=== PATIENT | female | born 1990 | race Two or more races ===

== ENCOUNTER 2025-02-10 11:01 | Outpatient (AMB) | payer MEDICAID, SELFPAY ==
--- NOTE | 2025-02-10 11:10 | OBCLNT_ITS ---
Allergies/Home Meds Allergies & Medications Allergies No Known Allergies Allergy (Verified 02/10/25 11:10) Medication Reconciliation Unobtainable 02/10/25 [History Confirmed 02/10/25] Intake Visit Data Collection New Patient or Established: New Patient (never been to [facility]) Reason for Visit:: - Routine care at 27 weeks and 3 days gestation Seen by Clinical Staff ONLY (RN/MA): Yes Language: MARIBEL ALEJANDRO / PRESCHOOL ADVISER Plastic Straightening Roll Operator Required: Yes Plastic Straightening Roll Operator's name/title: MARIBEL ALEJANDRO / PRESCHOOL ADVISER Do You Feel Safe at Home: Yes Authorities Contacted: N/A PCP or OBGYN visit in last 3 months: Yes Date of Last PCP or OBGYN visit: 01/06/25 Hx Now: Yes Are you currently on any form of Control: No Last menstrual period: 05/10/24 Pain Present Currently: Yes Pain Scale Used: Weeks-Marley/Numerical Pain scale:: 0 Smoking Status Smoking Status: Never smoker Questionnaires Covid-19 Vaccine Questionnaire Has patient been vacinated for Covid-19 Have you been vacinated for Covid-19: No PHQ-9 PHQ-2 Over the last 2 weeks, how often have you been bothered by any of the following problems? 1. Little interest or pleasure in doing things: not at all PHQ-9 3. Trouble falling or staying asleep, or sleeping too much: Not at all 4. Feeling tired or having little energy: Not at all 5. Poor appetite or overeating: Not at all 6. Feeling bad about yourself - or that you are a failure or have let yourself or your family down: Not at all 7. Trouble concentrating on things, such as reading the newspaper or watching television: Not at all 8. Moving or speaking so slowly that other people could have noticed? - Or the opposite - being so fidgety or restless that you have been moving around a lot more than usual: not at all 9. Thoughts that you would be better off or of hurting yourself in some way: Not at all If you checked off any problems, how difficult have these problems made it for you to do your work, take care of things at home, or get along with other people?: not difficult at all Source: Developed by Drs. Vinicio Law, Trish Zhang, Jhonny Cohen and colleagues, with an educational rabia from [employer]. Depression screen completed yes Social History Living Situation History Marital Status: Lives With: Family Housing: House Tobacco History Smoking Status: Never smoker Second Hand Smoke Exposure: No Alcohol History Alcohol Intake: Never Domestic Abuse History Do You Feel Safe at Home: Yes Past Medical History Past Medical History Have you ever been diagnosed with any of the following: History of Present Illness HPI Narrative - Snow is a 32-year-old presenting for routine care at 27 weeks and 3 days gestation. - Patient was transferred from a different facility and initially seen at 29 weeks gestation. - She has a history of all vaginal deliveries with pre-eclampsia in her 2nd . - At the last visit: - Comprehensive labs were ordered - MFM referral was created for level 2 ultrasound - Patient was started on low-dose aspirin due to her previous history - Current visit: - Patient reports feeling good - heartbeat was checked and found to be normal at 152-153 bpm - No specific complaints or symptoms reported during this visit No contractions/ LOF/VB, reports good FM No VILLASEÑOR/VC/RUQ/Epig pain OB Initial Visit OB Flowsheet OB Flowsheet Initial Weight: Not Recorded Date -?-?-?-?-?-?-?-?-?-?-?-?- EGA Weight Edema CTX Effacement BP Fundal ht Pres Dilation Effacement Station Visit Note Alb Glu FHR Mov 02/10/25 -?-?-?-?-?-?-?-?-?-?-?-?- 39w 3d Shanon Green, at 3 9w3d (JIAN 02/14/2025 by LMP 05/10/2024), presents for routine full-term visit. She reports no contractions and denies any -related complications, including diabetes or hypertension. movement remains active. She has a history of four prior vaginal deliveries without or surgical history. No current complaints. heart rate is 135?136 bpm. Labs show mild anemia (Hgb 10.2), O+ blood type, normal 1-hour glucose (87), A1c 5.0, and negative infectious disease and CF screens. Plan: Follow up with lumber estimator Melody after JIAN () Perform cervical exam at next visit Monitor for spontaneous labor; consider induction if no labor by due date Review and consolidate records from Dr. Winn into chart Continue education and monitor for labor sign Menstrual History Menstrual reliability: definite Flow: normal Menstrual regularity: regular Monthly: Yes Age at menarche: 14 On control pills at conception: Yes OB History : 4 Para: 3 Hx # Pregnancies: 0 Hx Total # of Abortions (Spontaneous & Elective): 0 # of Living Children: 3 Delivery History 1st : Child's name: FANY date: 08/19/09 sex: female Delivery type: vaginal weight (lbs): 2721.554 g History of depression before or after : No 2nd : Child's name: ESTELITA LACY date: 08/12/12 sex: female Delivery type: vaginal weight (lbs): 2721.554 g History of depression before or after : No 3rd : Child's name: MEGHAN date: 04/09/17 sex: female Delivery type: vaginal weight (lbs): 2721.554 g History of depression before or after : No Infection History & Risk Evaluation History of STDs: none HIV risk evaluation: low risk Hepatitis B risk evaluation: low risk Varicella/chicken pox status: immunized Genetic Screening & History Genetic Screening/Teratology Counseling - Includes patient, baby's father, or anyone in either family with: 1. Patient's age 35 years or older as of estimated date of delivery: No 2. Thalassemia (Montserratian, Swedish, Mediterranean, or Background); MCV less than 80: No 3. Neural Tube Defect (Meningomyelocele, Spina Bifida, or Anencephaly): No 4. Congenital Heart Defect: No 5. Down Syndrome: No 6. Lucas-Sachs (Ashkenazi Voodoo, Cajun, Slovak Anguillan): No 7. Julio Disease (Ashkenazi Voodoo): No 8. Familial Dysautonomia (Ashkenazi Voodoo): No 9. Sickle Cell Disease or Trait (): No 10. Hemophilia or other blood disorders: No 11. Muscular Dystrophy: No 12. Cystic Fibrosis: No 13. [place]'s Chorea: No 14. Mental Retardation/Autism: No 15. Other inherited genetic or chromosomal disorder: No 16. Maternal Metabolic Disorder (EG,TYPE 1 Diabetes, PKU): No 17. Patient or baby's father had a child with defects not listed above: No 18. Recurrent loss or a stillbirth: No 19. Medications (including supplements, vitamins, herbs or otc drugs)/illicit/recreational drugs/alcohol since last menstrual period: No 20. Any other: No Infection History 1. Live with someone with TB or exposed to TB: No 2. Rash or viral illness since last menstrual period: No 3. Hepatitis B,C: No Other (see comments) Source: [employer] Exam General General Appearance: alert, in no apparent distress and healthy appearing Head Head exam: atraumatic Neck Neck exam: Present normal inspection and trachea midline Chest Chest inspection: Present normal inspection and symmetric chest wall rise External exam: Present normal external exam; Absent tenderness Neuro Neurological exam: Present oriented X3 Psych Psychiatric exam: Present normal affect and normal mood Assessment & Plan Diagnosis / Problem List (1) Supervision of high risk , unspecified, third trimester: Status: Acute Plan Problem List - - History of pre-eclampsia - Anemia - Asymptomatic bacteriuria Assessment - Intrauterine at 27 weeks and 3 days gestation - 6, para 4013 - History of pre-eclampsia in 2nd - Anemia (hemoglobin 10.8) - Asymptomatic bacteriuria (Morquinella morquinae <100,000 CFU) - Male fetus confirmed by maternity genome testing - Low-dose aspirin therapy initiated Plan - Follow up in 2 weeks - Await call from [facility] specialist for level 2 ultrasound appointment (expected within 1-2 weeks) - Continue low-dose aspirin regimen Educated the patient on labor signs, including regular contractions, lower back pain, and changes in vaginal discharge. Advised avoiding heavy lifting and getting adequate rest. Instructed to contact the office immediately if any signs occur. Discussed the importance of a balanced diet rich in folic acid, iron, and calcium, and provided a list of recommended and to-avoid foods. Emphasized avoiding high-sugar foods to reduce gestational diabetes risk. Encouraged hydration and frequent, small meals for energy.. Office Procedures OB Clinic LOC & Office Proc's Nursing/Assessment Patient Status: Initial/New Patient OB Clinic Nursing Assessment: BP Monitoring, Medication Reconciliation, Update PMH in EMR and Vital Signs OB Clinic Coordination of Care: Consent,records obtained, informed consent, Education Simp Pt/Fam, Lab and Imaging orders, Results/Orders obtained and Staff clarify orders Special Needs: Heart tones New Patient Charge New Patient Point Assignment: [id number] New Patient Point Charge: SAAS ARCHITECT Level 4 (2310-1248)
== END 2025-02-10 13:08 | disposition home or self-care (01) ==
PROVIDERS: Supervising Provider Obstetrics & Gynecology; Visit Provider Obstetrics & Gynecology
DX: O09.293 Supervision of pregnancy with other poor reproductive or obstetric history, third trimester (principal); Z3A.39 39 weeks gestation of pregnancy; O09.893 Supervision of other high risk pregnancies, third trimester; Z87.59 Personal history of other complications of pregnancy, childbirth and the puerperium; O99.013 Anemia complicating pregnancy, third trimester; R82.71 Bacteriuria
CPT/HCPCS: 99204; G0463

== ENCOUNTER 2025-02-16 08:45 | Outpatient (AMB) | payer MEDICAID, SELFPAY ==
--- NOTE | 2025-02-16 08:49 | AMB.OBVISIT ---
Vital Signs 02/16/25 08:55 Weight 78.075 kg Weight Measurement Method Standing Scale BP 108/69 Blood Pressure Source Automatic Cuff Blood Pressure Location Left Upper Arm Position Sitting Respiration 18 Pulse 61 Pulse Source Monitor Temp 97.2 F Temp Source Oral Pulse Oximetry (%) 99 Oxygen Delivery Method Room Air Allergies/Home Meds Allergies & Medications Allergies No Known Allergies Allergy (Verified 02/16/25 08:56) Medication Reconciliation Unobtainable 02/10/25 [History Confirmed 02/16/25] Intake Visit Data Collection New Patient or Established: Established Patient (seen at [facility] within 3 years) Reason for Visit:: OBC Seen by Clinical Staff ONLY (RN/MA): No Stock Taker Required: No Do You Feel Safe at Home: Yes Authorities Contacted: N/A PCP or OBGYN visit in last 3 months: Yes Date of Last PCP or OBGYN visit: 02/10/25 Hx Now: Yes Are you currently on any form of Control: No Pain Present Currently: No Pain Scale Used: Weeks-Marley/Numerical Pain scale:: 0 Smoking Status Smoking Status: Never smoker Questionnaires Covid-19 Vaccine Questionnaire Has patient been vacinated for Covid-19 Have you been vacinated for Covid-19: Yes PHQ-9 PHQ-2 Over the last 2 weeks, how often have you been bothered by any of the following problems? 1. Little interest or pleasure in doing things: not at all 2. Feeling down, depressed, or hopeless: not at all Total score: 0 PHQ-9 3. Trouble falling or staying asleep, or sleeping too much: Not at all 4. Feeling tired or having little energy: Not at all 5. Poor appetite or overeating: Not at all 6. Feeling bad about yourself - or that you are a failure or have let yourself or your family down: Not at all 7. Trouble concentrating on things, such as reading the newspaper or watching television: Not at all 8. Moving or speaking so slowly that other people could have noticed? - Or the opposite - being so fidgety or restless that you have been moving around a lot more than usual: not at all 9. Thoughts that you would be better off or of hurting yourself in some way: Not at all Total score: 0 If you checked off any problems, how difficult have these problems made it for you to do your work, take care of things at home, or get along with other people?: not difficult at all Source: Developed by Drs. Vinicio Law, Trish Zhang, Jhonny Cohen and colleagues, with an educational rabia from [employer]. Depression screen completed yes Social History Living Situation History Lives With: Family Housing: House Tobacco History Smoking Status: Never smoker Second Hand Smoke Exposure: No Alcohol History Alcohol Intake: Never Domestic Abuse History Do You Feel Safe at Home: Yes Care OB Visit Log OB Flowsheet Initial Weight: Not Recorded Date <del>?</del> EGA Weight Edema CTX Effacement BP Fundal ht Pres Dilation Effacement Station Visit Note Alb Glu FHR Mov 02/10/25 <del>?</del> 39w 3d Shanon Green, at 39w3d (JIAN 02/14/2025 by LMP 05/10/2024), presents for routine full-term visit. She reports no contractions and denies any -related complications, including diabetes or hypertension. movement remains active. She has a history of four prior vaginal deliveries without or surgical history. No current complaints. heart rate is 135?136 bpm. Labs show mild anemia (Hgb 10.2), O+ blood type, normal 1-hour glucose (87), A1c 5.0, and negative infectious disease and CF screens. Plan: Follow up with sales and service specialist Melody after JIAN (02/14/2025) Perform cervical exam at next visit Monitor for spontaneous labor; consider induction if no labor by due date Review and consolidate records from Dr. Winn into chart Continue education and monitor for labor sign JIAN Calculator Estimated Delivery Date Method Current WG Current Estimate 02/14/25 LMP (Certain) 40w 2d Comments: O+,abs-,rpr;;nr, rub imm, hbsag-,hiv-, GC/CT-, NIPT and carrier-, 34 yo EDC 02/14/25 Assessment & Plan Diagnosis / Problem List (1) Supervision of high risk , unspecified, third trimester: Status: Acute Plan gbs today, discuss labor precaution. fkc bid. increase fluid rtc 1 week. NST NV, IOL 02/26 Office Procedures OB Clinic LOC & Office Proc's Nursing/Assessment Patient Status: Established Patient OB Clinic Nursing Assessment: BP Monitoring, Medication Reconciliation, Update PMH in EMR and Vital Signs OB Clinic Coordination of Care: Consent,records obtained, informed consent, Lab and Imaging orders, Results/Orders obtained and Staff clarify orders Established Patient Charge Established Patient Point Assignment: 80 Established Patient Point Charge: EP Level 3 (80-115)
[2025-02-16 08:55] VITALS: BP 108/69; PULSE 61; RESP 18; TEMP 36.2; O2SAT 99
[2025-02-16 10:01] LABS: Bilirubin,Urine Clinitek Negative (Negative); Blood,Urine Clinitek Trace-intact (Negative); Glucose, Urine Clinitek Negative (Negative); Ketones,Urine Clinitek Negative (Negative); Leukocyte Esterase,Urine Clin 1+ (Negative); Nitrite,Urine Clinitek Negative (Negative); Protein,Urine Clinitek Negative (Neg - Trace); Specific Gravity,Urine Clin 1.025 (1.001-1.030); Urobilinogen,Urine Clinitek 0.2 mg/dL (0.0-1.0)
== END 2025-02-16 09:16 | disposition home or self-care (01) ==
LOC: HODSOBC 08:45
PROVIDERS: PCP Advanced Practice Midwife; Referring Provider Advanced Practice Midwife; Supervising Provider Advanced Practice Midwife; Visit Provider Advanced Practice Midwife
DX: O09.93 Supervision of high risk pregnancy, unspecified, third trimester (principal); Z3A.40 40 weeks gestation of pregnancy; Z36.85 Encounter for antenatal screening for Streptococcus B
CPT/HCPCS: 81001; 99213; G0463

== ENCOUNTER 2025-02-23 09:51 | Outpatient (AMB) | payer MEDICAID, SELFPAY ==
[2025-02-23 10:14] VITALS: BP 122/67; PULSE 78; RESP 18; TEMP 36.2; O2SAT 97
--- NOTE | 2025-02-23 10:14 | OBCLNT_ITS ---
Vital Signs 02/23/25 10:14 Weight 80.002 kg Weight Measurement Method Standing Scale BP 122/67 Blood Pressure Source Automatic Cuff Blood Pressure Location Left Upper Arm Position Sitting Respiration 18 Pulse 78 Pulse Source Monitor Temp 97.2 F Temp Source Oral Pulse Oximetry (%) 97 Oxygen Delivery Method Room Air Allergies/Home Meds Allergies & Medications Allergies No Known Allergies Allergy (Verified 02/23/25 10:16) Medication Reconciliation Unobtainable 02/10/25 [History Confirmed 02/23/25] Intake Visit Data Collection New Patient or Established: Established Patient (seen at [facility] within 3 years) Reason for Visit:: OB CHECK Seen by Clinical Staff ONLY (RN/MA): No Hydroelectric Operator Required: No Do You Feel Safe at Home: Yes Authorities Contacted: N/A PCP or OBGYN visit in last 3 months: Yes Date of Last PCP or OBGYN visit: 02/16/25 Hx Now: Yes Are you currently on any form of Control: No Pain Present Currently: No Pain Scale Used: Weeks-Marley/Numerical Pain scale:: 0 Smoking Status Smoking Status: Never smoker Questionnaires Covid-19 Vaccine Questionnaire Has patient been vacinated for Covid-19 Have you been vacinated for Covid-19: Yes PHQ-9 PHQ-2 Over the last 2 weeks, how often have you been bothered by any of the following problems? 1. Little interest or pleasure in doing things: not at all 2. Feeling down, depressed, or hopeless: not at all Total score: 0 PHQ-9 3. Trouble falling or staying asleep, or sleeping too much: Not at all 4. Feeling tired or having little energy: Not at all 5. Poor appetite or overeating: Not at all 6. Feeling bad about yourself - or that you are a failure or have let yourself or your family down: Not at all 7. Trouble concentrating on things, such as reading the newspaper or watching television: Not at all 8. Moving or speaking so slowly that other people could have noticed? - Or the opposite - being so fidgety or restless that you have been moving around a lot more than usual: not at all 9. Thoughts that you would be better off or of hurting yourself in some way: Not at all Total score: 0 If you checked off any problems, how difficult have these problems made it for you to do your work, take care of things at home, or get along with other people?: not difficult at all Source: Developed by Drs. Vinicio Law, Trish Zhang, Jhonny Cohen and colleagues, with an educational rabia from [employer]. Depression screen completed yes Social History Living Situation History Lives With: Family Housing: House Tobacco History Smoking Status: Never smoker Second Hand Smoke Exposure: No Alcohol History Alcohol Intake: Never Domestic Abuse History Do You Feel Safe at Home: Yes Care OB Visit Log OB Flowsheet Initial Weight: Not Recorded Date -?-?-?-?-?-?-?-?-?-?-?-?- EGA Weight Edema CTX Effacement BP Fundal ht Pres Dilation Effacement Station Visit Note Alb Glu FHR Mov 02/10/25 -?-?-?-?-?-?-?-?-?-?-?-?- 39w 3d Shanon Green, at 3 9w3d (JIAN 02/14/2025 by LMP 05/10/2024), presents for routine full-term visit. She reports no contractions and denies any -related complications, including diabetes or hypertension. movement remains active. She has a history of four prior vaginal deliveries without or surgical history. No current complaints. heart rate is 135?136 bpm. Labs show mild anemia (Hgb 10.2), O+ blood type, normal 1-hour glucose (87), A1c 5.0, and negative infectious disease and CF screens. Plan: Follow up with technology intern Melody after JIAN () Perform cervical exam at next visit Monitor for spontaneous labor; consider induction if no labor by due date Review and consolidate records from Dr. Winn into chart Continue education and monitor for labor sign 02/16/25 -?-?-?-?-?-?-?-?-?-?-?-?- 40w 2d 78.075 kg absent occasional 25 108/69 38 ce phalic 1 25 -4 GBS today, review records, discuss labor precaution, fkc bid, fetus active, pressure, sve: L/P/soft/1/thick. schedule IOL GBS today, review records, d iscuss labor precaution, fkc bid, fetus active, pressure, sve: L/P/soft/1/thick. schedule IOL. patient agrees to 1 week IOL GBS today, review records, d iscuss labor precaution, fkc bid, fetus active, pressure, sve: L/P/soft/1/thick. schedule IOL. patient agrees to 1 week IOL, nst nv, IOL 02/26/25 146 a ctive JIAN Calculator Estimated Delivery Date Method Current WG Current Estimate 02/14/25 LMP (Certain) 41w 2d Office Procedures OB Clinic LOC & Office Proc's Nursing/Assessment Patient Status: Established Patient OB Clinic Nursing Assessment: Medication Reconciliation, Update PMH in EMR and Vital Signs OB Clinic Coordination of Care: Education Complex Pt/Fam, Consent,records obtained, informed consent and Staff clarify orders Special Needs: Heart tones Established Patient Charge Established Patient Point Assignment: 95 Established Patient Point Charge: EP Level 3 (80-115) Assessment & Plan Diagnosis / Problem List (1) Supervision of high risk , unspecified, third trimester: Status: Acute Plan discuss labor precaution, fkc bid. scheduled for iOL 02/26/25. NST/BPP and complete today. rtc 3 days OBC
== END 2025-02-23 10:38 | disposition home or self-care (01) ==
LOC: HODSOBC 09:51
PROVIDERS: Supervising Provider Advanced Practice Midwife; Visit Provider Advanced Practice Midwife
DX: O09.893 Supervision of other high risk pregnancies, third trimester (principal); O48.0 Post-term pregnancy; Z3A.41 41 weeks gestation of pregnancy
CPT/HCPCS: 99213; G0463

== ENCOUNTER 2025-02-23 10:53 | Outpatient (CLI) | payer MEDICAID, SELFPAY ==
--- NOTE | 2025-02-23 12:09 | XR_ITS ---
Examination: Biophysical profile, ultrasound Date and time of exam: February 23, 2025 1226 hours INDICATIONS: Post dates Technique: Multiple transabdominal sonographic images of the pelvis abdomen obtained. Attention is directed to the breathing movement, gross body movement, amniotic fluid volume and tone. Findings: Amniotic fluid index 11.5 cm Total biophysical profile is 8 of 8. breathing movement is 2. Gross body movement is 2. tone is 2. Qualitative amniotic fluid volume is 2 Impression: Biophysical profile is 8 of 8.
[2025-02-23 12:41] VITALS: BP 109/66; PULSE 56; RESP 20; TEMP 36.4
[2025-02-23 12:42] VITALS: BP 109/66; PULSE 56
[2025-02-23 12:54] VITALS: BP 109/66; PULSE 56; RESP 20; TEMP 36.4; BMI 34.3
== END 2025-02-23 13:15 | disposition home or self-care (01) ==
LOC: S4S1 10:55 → S4SX 10:55
PROVIDERS: Referring Provider Advanced Practice Midwife; Visit Provider Advanced Practice Midwife
DX: O48.0 Post-term pregnancy (principal); Z3A.41 41 weeks gestation of pregnancy
CPT/HCPCS: 59025; 76819

== ENCOUNTER 2025-02-26 08:43 | Inpatient (IN) | payer MEDICAID, SELFPAY ==
[2025-02-26] VITALS (177 sets, daily range): BP systolic 100–117; BP diastolic 55–82; PULSE 60–93; RESP 16–17; TEMP 36.5–37.1; O2SAT 94–100
[2025-02-26 10:47] LABS: Basophils # (Auto) 0.1 Thou/mm3 (0.0-0.2); Basophils % (Auto) 1 % (0-2.5); Eosinophils # (Auto) 0.1 Thou/mm3 (0.0-0.5); Eosinophils % (Auto) 1 % (0-10); Hematocrit 34.3 % (36.0-46.0); Immature Granulocytes % (Auto) 3 % (0-0); Immature Granulocytes Auto 0.32 Thou/mm3 (0.00-0.00); Lymphocytes # (Auto) 1.9 Thou/mm3 (1.0-4.8); Lymphocytes % (Auto) 17 % (10-50); Mean Corpuscular Hemoglobin 32.3 pg (25.0-35.0); Mean Corpuscular Volume 93 fL (80-100); Monocytes # (Auto) 0.6 Thou/mm3 (0.0-0.8); Monocytes % (Auto) 6 % (0-12); Neutrophils # (Auto) 7.7 Thou/mm3 (1.8-7.7); Neutrophils % (Auto) 72 % (37-80); Nucleated Red Blood Cell % 0 /100 WBC (0); Platelet Count 263 Thou/mm3 (140-440); RDW Standard Deviation 45.3 fL (36.4-46.3); Red Blood Count 3.71 Miln/mm3 (4.00-5.20); White Blood Count 10.7 Thou/mm3 (3.6-11.0)
[2025-02-26 11:14] LABS: Rubella, IgG Antibody Reactive (Immune)
[2025-02-26 11:23] LABS: Syphilis Nonreactive (Nonreactive)
--- NOTE | 2025-02-26 11:57 | ESHP_ITS ---
Documentation for date of: 02/26/25 OB Labor/Induct. HPI History of Present Illness Chief complaint: patient presents for scheduled IOL for late-term gestation : 4 Para: 3 Term pregnancies: 3 pregnancies: 0 Living children: 3 History of Abortions: Spontaneous and Elective: 0 History of Vaginal deliveries: 3 History of sections: No History of : No JIAN: 02/14/25 Gestational Age (weeks): 41 Gestational Age (days): 5 Indication for induction: post dates History of present illness: Patient presents for scheduled induction of labor. Indication: late-term gestation. No regular/painful ctx. No LOF. No vaginal bleeding. Normal movement. History of Present Adequate Care: Yes Narrative: Hx of x3, all females around 3000kg, last delivery 8 years ago. This complicated by: - History of pre-eclampsia in 2nd (taking ASA 81mg PO QD) - Transfer of care to [facility] practice in 3rd trimester - Anemia (hemoglobin 10.8) - Asymptomatic bacteriuria (Morquinella morquinae <100,000 CFU) - Male fetus confirmed by maternity genome testing Labs Maternal Blood Type: O Pos Labs: Negative: RPR, Hepatitis B, HIV, Chlamydia, Gonorrhea and Group Beta Strep and Unknown: Rubella Titre, Herpes Type 1 and Herpes Type 2 Review of Systems Review of Systems Narrative Review of Systems: Review of Systems Systems Reviewed: All systems reviewed, normal except as documented Constitutional Constitutional: Denies body ache(s), Denies chills, Denies fever(s) and Denies headache(s) ENT Ears, Nose, Mouth, and Throat: Denies headache(s) and Denies vertigo Cardiovascular Cardiovascular: Denies chest pain, Denies palpitations, Denies dyspnea and Denies syncope Respiratory Respiratory: Denies cough, Denies dyspnea Gastrointestinal Gastrointestinal: Denies nausea and Denies vomiting Neurologic Neurologic: Denies convulsions, Denies headache(s), Denies other visual disturbances, Denies syncope and Denies vertigo Past Medical History Family History OTHER FAMILY HX: non-contributory Surgical History SURGICAL: Negative Section OTHER SURGICAL HX: denies all Social History SOCIAL: , good support. No hx of tobacco/ETOH/illicit drug use. Past Medical History Comments PMH COMMENT: benign PMHx Meds Home Medications and Allergies Home Medications ?Medication ?Instructions ?Recorded ?Confirmed ?Type vitamin no.45-iron-FA 28 1 tab PO .q day 02/0502/26/25 History mg iron-1 mg chewable tablet Allergies Allergy/AdvReac Type Severity Reaction Status Date / Time No Known Allergies Allergy Verified 02/26/25 09:33 OB Exam Physical Exam Vital signs: Pulse BP Pulse Ox 67 114/69 98 02/26/25 09:27 02/26/25 09:27 02/26/25 11:56 Narrative: General: well developed, well nourished, no acute distress, conversant Cardiac: normal heart rate Lungs: breathing without distress Abdomen: soft, gravid, non-tender, no rebound or guarding Extremities: no pain with palpation of calves Detailed Labor and Delivery Exam Dilation (cm): 2 Effacement (%): 50 Cervix position: posterior station: -2 Consistency: medium Presentation: Vertex Membranes: intact monitor accelerations: 15x15 monitor decelerations: None extermination supervisor variability: Moderate (11-25) Contraction frequency (min): no regular ctx pattern OB Results Labs 02/26/25 10:30 Labs: Short CBC 02/26/25 Range/Units 10:30 WBC 10.7 (3.6-11.0) Thou/mm3 Hgb 12.0 (12.0-16.0) g/dL Hct 34.3 L (36.0-46.0) % Plt Count 263 (140-440) Thou/mm3 OB Assessment & Plan Assessment and Plan (1) Encounter for induction of labor: Status: Acute Assessment and plan: Shanon is a 34yo with SIUP at 41&5wk presenting for scheduled IOL. SCE: 2-/-2. Vitals wnl, benign exam. Reassuring assessment overall. PMhx/PNC significant for: - History of pre-eclampsia in 2nd (taking ASA 81mg PO QD) - Transfer of care to [facility] practice in 3rd trimester - Anemia (hemoglobin 10.8) - Asymptomatic bacteriuria (Morquinella morquinae <100,000 CFU) - Male fetus confirmed by maternity genome testing Plan: -Admit to L&D -Establish IV, routine labs -CEFM -Regular diet [id number]-[id number], then clear liquid diet in labor -Counseled/consented re: iol and -GBS status: negative -Initiated IOL with: cervical lorenzo bulb (40cc NS in uterine balloon only- well tolerated) and cytotec 25mcg PV. Will continue cytotec 50mcg PO after the initial 4 hours unless IV pitocin becomes more appropriate based on ctx pattern. -Anticipate -Safe to proceed Lisa Kasper MD (2) 41 weeks gestation of : Status: Acute
[2025-02-26] MEDS: MISOPROSTOL 50 mCg TABLET 25 MCG VAGINAL (12:20)
--- NOTE | 2025-02-26 16:57 | PD.LDPN ---
Documentation for date of: 02/26/25 OB Labor Progress Note Pelvic Exam Dilation (cm): 1 Effacement (%): 50 station: -3 Contractions Monitor mode: External Contraction frequency: 1-3 Contraction intensity: Mild Status status: Category l Assessment and Plan Comments: Intrapartum Note Patient comfortable with epidural. SCE: /-3, cook lorenzo cervical balloon placed with 40cc intra-uterine only, patient tolerated. Will continue
--- NOTE | 2025-02-26 17:08 | PD.LDPN ---
Documentation for date of: 02/26/25 OB Labor Progress Note Pelvic Exam Dilation (cm): 3 Effacement (%): 50 station: -2 Contractions Monitor mode: External Contraction frequency: 1-3 Contraction intensity: Mild Status status: Category l Assessment and Plan Comments: Intrapartum Note Patient doing well. Lim cervical balloon recently came out. SCE: 3-4/50/-2 Cat I FHRT Ctx q3-4min Plan to start IV pitocin and titrate per protocol CEFM Continue to closely monitor Safe to proceed Lisa Kasper MD
[2025-02-26] MEDS: RINGERS LACTATED 1000 ML 1,000 ML 100 ML IV (20:27)
[2025-02-26] MEDS: OXYTOCIN in NS 30 units 30 UNIT/500 ML BAG IV (22:51)
[2025-02-27] VITALS (31 sets, daily range): BP systolic 105–130; BP diastolic 54–75; PULSE 61–89; RESP 16–20; TEMP 36.6–37.2; O2SAT 96–100
[2025-02-27] MEDS: OXYTOCIN in NS 20 units 20 UNIT/1,000 ML BAG 125 UNIT IV (01:39)
[2025-02-27] MEDS: METHYLERGONOVINE INJ 0.2 MG/ML VIAL IM (01:44)
[2025-02-27] MEDS: BENZO/LANO/ALOE (Dermoplast) 60 GM CAN 1 SPRAY TOP (01:51)
[2025-02-27] MEDS: IBUPROFEN TAB 400 MG TABLET 800 MG PO (02:49)
[2025-02-27 08:45] LABS: Basophils % (Auto) 0 % (0-2.5); Eosinophils # (Auto) 0.1 Thou/mm3 (0.0-0.5); Eosinophils % (Auto) 0 % (0-10); Hematocrit 29.5 % (36.0-46.0); Hemoglobin 10.4 g/dL (12.0-16.0); Immature Granulocytes % (Auto) 1 % (0-0); Immature Granulocytes Auto 0.15 Thou/mm3 (0.00-0.00); Lymphocytes # (Auto) 1.8 Thou/mm3 (1.0-4.8); Lymphocytes % (Auto) 13 % (10-50); Mean Corpuscular HGB Conc 35.3 g/dl (31.0-37.0); Mean Corpuscular Hemoglobin 32.7 pg (25.0-35.0); Mean Corpuscular Volume 93 fL (80-100); Monocytes % (Auto) 7 % (0-12); Neutrophils # (Auto) 11.5 Thou/mm3 (1.8-7.7); Neutrophils % (Auto) 79 % (37-80); Nucleated Red Blood Cell % 0 /100 WBC (0); Platelet Count 207 Thou/mm3 (140-440); RDW Standard Deviation 45.1 fL (36.4-46.3); Red Blood Count 3.18 Miln/mm3 (4.00-5.20); White Blood Count 14.5 Thou/mm3 (3.6-11.0)
[2025-02-27] MEDS: DOCUSATE SOD 100 MG CAPSULE PO ×2 (09:37→20:38)
--- NOTE | 2025-02-27 10:16 | OBDSUM_ITS ---
Data ([place]) Data Hx Section: No : 4 Term: 3 : 0 Livin Abortions: Spontaneous & Theraputic: 0 Delivery Data ([place]) Labor Data Initiation of labor: Induction Induction/Augmentation Agent: Cervical Balloon ROM date: 02/27/25 ROM time: 01:20 Amniotic membrane rupture type: Spontaneous Amniotic fluid description: Clear Delivery Data Onset of labor date: 02/27/25 Onset of labor time: 01:05 Complete dilation date: 02/27/25 Complete dilation time: 01:28 [place] delivery date: 02/27/25 [place] delivery time: 01:34 Placenta delivery date: 02/27/25 Placenta delivery time: 01:39 Stage 1 total time: Labor - Stage 1 Duration 23 minutes Delivered by: Inga Delivery nurse: Triston Clement RN [place] nurse: Denver Jeffries RN Photoresist Printer at delivery: No Other staff at delivery: Nayeli CHEATHAM Delivery Method Delivery method: Normal Vaginal Delivery Presentation: Vertex Anesthesia Type Anesthesia Type: None Placenta Placenta delivery description: Spontaneous Cord blood sent to lab: Yes cord blood collection: Cord Blood Type EBL Estimated blood loss (ml): 250 Umbilical Cord cord description: 3 Vessels Additional Procedures Shanon is a 34yo [id number] s/p uncomplicated at 41&6wk after undergoing IOL for late-term gestation, delivering at 0134 on 02/27/2025. On presentation, SCE was 2/50/-2. She progressed with cytotec, cervical lorenzo ballon and eventually pitocin augmentation to C/C/0 at which point she began pushing. She declined epidural. With good maternal pushing efforts, 's head delivered OA and restituted ERIN. One very loose nuchal cord reduced. Left anterior shoulder delivered easily followed by posterior shoulder and corpus. had spontaneous cry and was vigorous. Apgars 8/8. placed on maternal abdomen where nose/mouth were suctioned and dried/stimulated. After approximately 1 minute, cord was clamped x2 and cut. Cord blood collected for typing. With fundal massage and cord traction, placenta delivered spontaneously and intact with 3 vessel centrally inserted cord. Bimanual massage performed and IV pitocin given per protocol with fundus then firm at u-2cm and hemostasis noted. Inspection of perineum and vagina revealed no lacerations. Small trickle of blood, so sweep just within cervix/FEDERICO performed which retrieved a small amount of clot. 0.2mg IM methergine given with observed hemostasis after. All counts correct x2. Mom and were doing well when I left the room. Lisa Kasper MD Complications Complications: none [place] Data ([place]) Data order: 1 's gender: Male Identification band number: [id number] weight (gms): 2480 g Weight (pounds): 5 lbs and 7.5 ozs [place] length: 48 cm 1 minute: 8 5 minutes: 8
[2025-02-28 00:35] VITALS: BP 100/54; PULSE 66; RESP 20; TEMP 36.4; O2SAT 97
[2025-02-28 07:40] VITALS: BP 104/63; PULSE 67; RESP 18; TEMP 36.6; O2SAT 99
--- NOTE | 2025-02-28 07:52 | ESPR_ITS ---
RE: AIDE SANTIAGO : 1990 DATE OF SERVICE: 02/28/2025 SUBJECTIVE: day #1, the patient denies any problems or complaints. She is voiding. She is ambulating. She is tolerating a regular diet. She is passing flatus. She denies any excessive vaginal bleeding. She denies any dizziness or lightheadedness. She denies any chest pain, palpitations, shortness of breath, or lower extremity pain. OBJECTIVE: Vital Signs: Blood pressure 100/54, heart rate 66, respirations 20, temperature 97.6, pulse oximetry is 97% on room air. Lungs: Clear to auscultation bilaterally. Heart: Regular rate and rhythm. Abdomen: Fundus is firm, nontender. Extremities: Nontender. LABORATORY DATA: Hemoglobin pre-delivery is 12, post-delivery is 10.4. ASSESSMENT: day #1, status post spontaneous vaginal delivery. PLAN: Discharge home. Discharge instructions were given. Follow up in the office in 6 weeks. DT: 07:26:07 TT: 07:51:00 Ref: [id number] - TID: [id number]
--- NOTE | 2025-02-28 10:33 | PD.LDDS ---
DS: Providers Provider Date of admission: 02/26/25 08:43 Primary care physician: Shawn Gagnon MD Admitting Provider: Lisa Kasper MD Attending Provider on Admission: Ty Kenny MD Consults: 02/27/25 01:51 Referral Routine Comment: Attending Provider on DC: Ty Kenny MD Discharging Provider: Ty Kenny MD DS: Diagnosis Problem List Completed Was Problem List Reviewed/Reconciled?: Yes Summary/Hosp Course Brief History: Patient presents for scheduled induction of labor. Indication: late-term gestation. No regular/painful ctx. No LOF. No vaginal bleeding. Normal movement. Peripartum Data Delivery Method: Normal Vaginal Delivery Time Spent with Patient Time attestation: Total time spent providing and/or coordinating discharge services: Exam Vital Signs Temp Pulse Resp BP Pulse Ox O2 Del Method 97.9 F 67 18 104/63 99 Room Air 02/28/25 07:40 02/28/25 07:40 02/28/25 07:40 02/28/25 07:40 02/28/25 07:40 02/28/25 07:40 Discharge Plan Plan Patient Disposition: HOME (Self Care) Patient condition on transfer: Stable Prescriptions/Referrals Prescriptions/Med Rec: New docusate sodium 100 mg Capsule 100 mg PO BID 10 Days Qty: 20 0RF ibuprofen 800 mg tablet 800 mg PO Q8H PRN (Reason: See Comments) 10 Days Qty: 20 0RF Continued vitamin #45-iron-FA 28 mg iron- 1 mg tablet,chewable 1 tab PO .q day Referrals: Shawn Gagnon MD [Primary Care Provider] - Patient/Caregiver Discharge Instructions Discharge Activity: activity as tolerated and other Other Discharge Activity Instructions:: vaginal rest and no heavy lifting more than 10 pounds for 6 weeks Follow up office in 6 wks. Descanzo vaginal no levantar nada que pese mas de 10 libras por 6 semanas, hacer prasanth con edyd doctor en 6 semanas Other Discharge Diet Instructions: regular diet Education Materials: After a Vaginal , : Caring for Yourself Print Language: Faroese Activity Restrictions/Additional Instructions: follow up with JULIAN Mckee in 2 weeks for visit, call clinic for appointment Stand Alone Forms: Jessica Award Info., Patient Portal Info Letter Discharge Order Discharge Orders: Discharge (Routine); Ordered 02/28/25 Ordered By: Ty Kenny Planned Discharge Date 02/28/25
== END 2025-02-28 10:07 | disposition home or self-care (01) | DRG 560 ==
LOC: S4SX 02-27 01:53 → S4NX 02-27 04:01
PROVIDERS: Admitting Provider Obstetrics & Gynecology; PCP Family Medicine; Visit Provider Specialist
DX: O48.0 Post-term pregnancy (principal); Z37.0 Single live birth; Z3A.41 41 weeks gestation of pregnancy; O69.81X0 Labor and delivery complicated by cord around neck, without compression, not applicable or unspecified; O99.02 Anemia complicating childbirth
CPT/HCPCS: 36415; 59409; 85025; 86762; 86780; 86850; 86900; 86901; J2210; J2590; J7120; A9270

== ENCOUNTER 2025-04-15 13:49 | Outpatient (AMB) | payer MEDICAID, SELFPAY ==
--- NOTE | 2025-04-15 13:58 | AMB.OBPP ---
Vital Signs 04/15/25 13:59 Weight 71.781 kg Weight Measurement Method Standing Scale BP 100/65 Blood Pressure Source Automatic Cuff Blood Pressure Location Right Upper Arm Position Sitting Respiration 17 Pulse 60 Pulse Source Monitor Temp 98.0 F Temp Source Temporal Artery Scan Pulse Oximetry (%) 96 Oxygen Delivery Method Room Air Allergies/Home Meds Allergies & Medications Allergies No Known Allergies Allergy (Verified 04/15/25 13:59) Medication Reconciliation vitamin no.45-iron-FA 28 mg iron-1 mg chewable tablet 1 tab PO .q day 02/23/25 [History Confirmed 04/15/25] ferrous sulfate 325 mg (65 mg iron) tablet 325 mg PO QDAY #60 tabs 04/15/25 [Rx] Intake Visit Data Collection New Patient or Established: Established Patient (seen at [facility] within 3 years) Reason for Visit:: Seen by Clinical Staff ONLY (RN/MA): No Apprentice Instrument Technician Required: No Do You Feel Safe at Home: Yes Authorities Contacted: N/A PCP or OBGYN visit in last 3 months: Yes Date of Last PCP or OBGYN visit: 02/28/25 Hx Now: No Are you currently on any form of Control: No Pain Present Currently: No Smoking Status Smoking Status: Never smoker 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: Past Medical History Past Medical History: No Hx Neurological Disorders, No Hx Cardiac Disorders, No Hx Cancer, No Hx Blood Disorders, No Hx Gastrointestinal Disorders, No Hx Renal Disease, No Hx Diabetes Mellitus Type 1 and No Hx Diabetes Mellitus Type 2 Questionnaires Covid-19 Vaccine Questionnaire Has patient been vacinated for Covid-19 Have you been vacinated for Covid-19: No Social History Living Situation History Marital Status: Lives With: Family Housing: House Tobacco History Smoking Status: Never smoker Second Hand Smoke Exposure: No Alcohol History Alcohol Intake: Never Domestic Abuse History Do You Feel Safe at Home: Yes EPDS - PP Depression Screening [place] Pospartum Depression Screen I have been able to laugh and see the funny side of things: (0) As much as I always could I have looked forward with enjoyment to things: (0) As much as I ever did I have blamed myself unnecessarily when things went wrong: (0) No, never I have been anxious or worried for no good reason: (0) No, not at all I have felt scared or panicky for no very good reason: (0) No, not at all Things have been getting on top of me: (0) No, I have been coping as well as ever I have been so unhappy that I have had difficulty sleeping: (0) No, not at all I have felt sad or miserable: (0) No, not at all I have been so unhappy that I have been crying: (0) No, never The thought of harming myself has occurred to me: (0) Never EPDS completed yes Care OB Visit Log OB Flowsheet Initial Weight: Not Recorded Date <del>?</del> EGA Weight BP Alb Glu CTX Pres Fundal ht FHR Mov Dilation Station Effacement Hx Notes Visit Note 02/10/25 <del>?</del> 39w 3d Shanon Green, at 39w3d (JIAN 02/14/2025 by LMP 05/10/2024), presents for routine full-term visit. She reports no contractions and denies any -related complications, including diabetes or hypertension. movement remains active. She has a history of four prior vaginal deliveries without or surgical history. No current complaints. heart rate is 135?136 bpm. Labs show mild anemia (Hgb 10.2), O+ blood type, normal 1-hour glucose (87), A1c 5.0, and negative infectious disease and CF screens. Plan: Follow up with senior care provider Melody after JIAN (02/14/2025) Perform cervical exam at next visit Monitor for spontaneous labor; consider induction if no labor by due date Review and consolidate records from Dr. Winn into chart Continue education and monitor for labor sign 02/16/25 <del>?</del> 40w 2d 78.075 kg 108/69 occasional cephalic 38 146 active 1 -4 25 GBS today, review records, discuss labor precaution, fkc bid, fetus active, pressure, sve: L/P/soft/1/thick. schedule IOL GBS today, review records, discuss labor precaution, fkc bid, fetus active, pressure, sve: L/P/soft/1/thick. schedule IOL. patient agrees to 1 week IOL GBS today, review records, discuss labor precaution, fkc bid, fetus active, pressure, sve: L/P/soft/1/thick. schedule IOL. patient agrees to 1 week IOL, nst nv, IOL 02/26/25 02/23/25 <del>?</del> 41w 2d 80.002 kg 122/67 occasional cephalic 38 146 active 1 -4 50 discuss GBS, labor precaution and fkc. fetus active, to [facility] for NST/BPP and complete sono. scheduled for IOL 02/26, sve: L/1/mid, -4/vertex. GBS-. c/o pressure. rtc 3 days JIAN Calculator Estimated Delivery Date Method Current WG Current Estimate 02/14/25 LMP (Certain) 48w 4d HPI Interval History: 34-year-old 4 para 4 for 6-week . Patient had a vaginal delivery February 27, 2025. Baby boy weighed 5 pounds. Patient was induced at 41 weeks. Intact perineum. She is breast and bottlefeeding. Siblings are adjusting. Father is involved and supportive. Patient plans to use Depo-Provera. She has not had sex. Denies social habits. Denies surgeries. Denies chronic illness Was or delivery considered high risk: Yes Delivery type: vaginal Was labor induced: yes Gestational age at delivery (weeks): 41 Delivery date: 02/27/25 Delivering provider: lauren landa Delivery complications: No Is patient infant: Yes Is patient sexually active: No Contraception planned: depo Review of Systems Review of Systems ROS limited to current 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 complaints: Yes Exam Narrative Physical exam: 21 his normal heart rate and rhythm. Lungs clear no wheezes. Euthyroid. Both breasts are soft. No signs of mastitis. Abdomen soft. Uterus below umbilicus. Perineum was intact. Negative Homans' sign. 2+ DTRs no edema Office Procedures OB Clinic LOC & Office Proc's Nursing/Assessment Patient Status: Established Patient OB Clinic Nursing Assessment: Medication Reconciliation and Update PMH in EMR OB Clinic Coordination of Care: Complex Care and Chronic Disease 1-5, Consent,records obtained, informed consent, Education Simp Pt/Fam and Staff clarify orders Established Patient Charge Established Patient Point Assignment: 70 Post Follow-up Visit Post Follow up Visit: Yes Injection/Vaccine Admin SQ Im Injection: Yes Office Meds Depo-Provera 150 mg/mL intramuscular syringe Performing Provider: Melody Landa CNM Performing Location: [facility] Administered by: Tosha Penaloza MA on 04/15/25 15:43 Dose Route Admin Location Dispensed Lot Number Expiration Date NDC Real Estate Transaction Coordinator 150 mg IM RIGHT GLUTE 1 mL [id number] 09/06/28 53181-896-58 [facility] Assessment & Plan Diagnosis / Problem List (1) Routine Follow-Up: (2) 6 weeks follow-up: Status: Acute (3) Encounter for management and injection of depo-Provera: Status: Acute Plan Review of Depo-Provera side effects and effectiveness. Depo-Provera 150 mg IM today. Condoms for 2 weeks. I discussed compliance. Walk 40 minutes a day. Continue vitamins. Start ferrous sulfate 1 tab p.o. daily. Also to be included vitamin D and calcium. Discussed breast-feeding and latching and breast-feeding positions. Increase fluids. Return in 12 weeks repeat Depo Care Reviewed delivery summary and any complications: Yes Perineal / incision healing noted: Yes Screened for depression: Yes Depression counseling provided: No Discussed family planning & contraception: Yes Contraception planned: depo Counseling on safe resumption of sexual activity: Yes Counseling on gradual excercise: Yes Discussed and concerns (describe), provided support: Yes Referred to engagement specialist: No Counseled on good nutrition, hydration, and self care: Yes Reviewed vaccine status: No Chronic & current problems reconciled on problem list: Yes care discussed; questions answered: feeding Follow up: routine/prn Additional counseling & anticipatory guidance provided: rtc 12 week depo, continue iron 1 tab q day. vitamin d and calcium, walk 40 minute daily, vitamin d and calcium, hydrate. rtc 12 week (FP) Tobacco Smoking Status: Never smoker
[2025-04-15 13:59] VITALS: BP 100/65; PULSE 60; RESP 17; TEMP 36.7; O2SAT 96
== END 2025-04-15 15:05 | disposition home or self-care (01) ==
LOC: HODSOBC 13:49
PROVIDERS: PCP Family Medicine; Referring Provider Family Medicine; Supervising Provider Advanced Practice Midwife; Visit Provider Advanced Practice Midwife
DX: Z39.2 Encounter for routine postpartum follow-up (principal); Z39.1 Encounter for care and examination of lactating mother; Z30.013 Encounter for initial prescription of injectable contraceptive
CPT/HCPCS: 96372; J3490